=== PATIENT | female | born 1975 | race Caucasian/White ===

== ENCOUNTER 2024-11-05 07:32 | Day surgery (SDC) | payer BC ==
[2024-11-05] MEDS ORDERED: XYLOCAINE 1% HCL 20 ML MDV IJ ONE (07:33)
[2024-11-05] MEDS ORDERED: Marcaine Mpf 0.5% Vial 30 Ml IJ ONE (07:33)
[2024-11-05] MEDS ORDERED: Lactated Ringers 1,000 ML IV ONE (08:45)
[2024-11-05] MEDS ORDERED: propofoL IV ONE (09:04)
--- NOTE | 2024-11-05 11:35 | XRAY ---
Indication: Right lumbar sympathetic nerve block. Intraoperative fluoroscopy provided for 42 seconds. 9 digital spot image submitted for interpretation demonstrates right posterior needle tip projecting just anterior to L2. Small amount of contrast injected for needle tip placement. Correlate with intraoperative findings/report.
--- NOTE | 2024-11-05 11:47 | XRAY ---
42 seconds of fluoroscopy was used in surgery for a right lumbar sympathetic nerve block.
== END 2024-11-05 09:49 | disposition home or self-care (01) ==
LOC: SDC-PAIN 07:32
PROVIDERS: ATTEND Psychiatry & Neurology Pain Medicine
DX: G90.521 Complex regional pain syndrome I of right lower limb (principal); E11.9 Type 2 diabetes mellitus without complications